=== PATIENT | female | born 1965 | race Caucasian/White ===

== ENCOUNTER → 2019-06-24 | Outpatient (CLI) | payer OTHER ==
[~2019-06-24] MED LIST: ALLEGRA PO; AMLO5 PO; AZEL137S; B12 SL; BISA5EC PO; CRUTCH3 USE; FERR325 PO; FLUT.05NI; Hard Nails2500 MCG PO; IBUP800 PO; LISI5 PO; MECL25 PO; MEDICAL MARIJUANA; OXYACE5T PO; OXYB5 PO; PROM25S PR; Sudogest60 MG PO; ZESTORETIC 20-251 EA PO
== END | disposition home or self-care (01) ==
LOC: LAB SHORT 18:52 → LAB 18:52
DX: N39.0 Urinary tract infection, site not specified (principal)
CPT/HCPCS: 87086

== ENCOUNTER → 2019-08-31 | Outpatient (CLI) | payer OTHER ==
[2019-09-01 12:21] LABS: Candida species (DNA Probe) Negative (NEGATIVE); G. vaginalis (DNA Probe) Positive (NEGATIVE); T. vaginalis (DNA Probe) Negative (NEGATIVE)
== END | disposition home or self-care (01) ==
LOC: LAB 19:26 → LAB SHORT 19:26
PROVIDERS: Obstetrics & Gynecology
DX: N89.8 Other specified noninflammatory disorders of vagina (principal)
CPT/HCPCS: 87480; 87510; 87660

== ENCOUNTER 2020-06-29 11:44 | Day surgery (SDC) | payer OTHER ==
[~2020-06-29] VITALS: Ht 167.6 cm; Wt 89.1 kg
[~2020-06-29 11:44] MED LIST changes: +ALLEGRA ALLERG180 MG PO; +CYAN500 PO
--- NOTE | 2020-06-29 15:12 | NUR ---
06/29/20 1512 Comfort Ochoa RECEIVED REPORT FROM LUCIO NUÑEZ. PATIENT IN RECLINER, DOES C/O PAIN IN LEFT LOWER ABDOMEN THAT SHE DESCRIBES BURNING SHE RATES THIS 2/10. SHE HAS BEEN MEDICATED PREVIOUSLY WITH ORAL PAIN MEDS PER MD ORDER WELL IV MEDICATION. SHE IS VERY EMOTIONAL AND KEEPS CRYING BUT SHE STATES THIS IS JUST DUE TO REMEMBER HER MOTHER WHO IN MARCH. WILL CONTINUE TO MONITOR PATIENT AND WORK TOWARDS DISCHARGE
== END 2020-06-29 15:46 | disposition home or self-care (01) ==
LOC: ORSCSDS 11:44
PROVIDERS: Obstetrics & Gynecology
PROC: 0UT24ZZ Resection of Bilateral Ovaries, Percutaneous Endoscopic Approach (ICD-10-PCS; principal; 2020-06-29 13:00)
PROC: 0UT64ZZ Resection of Left Fallopian Tube, Percutaneous Endoscopic Approach (ICD-10-PCS; principal; 2020-06-29 13:00)
DX: R10.2 Pelvic and perineal pain (principal); D27.1 Benign neoplasm of left ovary; N83.8 Other noninflammatory disorders of ovary, fallopian tube and broad ligament; Z90.710 Acquired absence of both cervix and uterus; K66.0 Peritoneal adhesions (postprocedural) (postinfection); I10 Essential (primary) hypertension; Z79.899 Other long term (current) drug therapy
CPT/HCPCS: 88305; A9270; J0171; J1100; J1885; J2001; J2250; J2405; J2704; J3010

== ENCOUNTER → 2022-10-16 | Outpatient (CLI) | payer OTHER | END | disposition home or self-care (01) | LOC: LAB SHORT 12:15 → LAB 12:15 | DX: E11.9 Type 2 diabetes mellitus without complications (principal) | CPT/HCPCS: 83036 ==

== ENCOUNTER → 2023-03-08 | Outpatient (CLI) | payer OTHER | END | disposition home or self-care (01) | LOC: LAB 10:03 → LAB SHORT 10:03 | DX: N39.0 Urinary tract infection, site not specified (principal) | CPT/HCPCS: 87077; 87086; 87186 ==

== ENCOUNTER → 2023-09-08 | Outpatient (CLI) | payer OTHER ==
[2023-09-09 11:34] LABS: Stool Occult Bld Immuno 1 Negative (NEGATIVE)
== END ==
LOC: LAB 05:40 → LAB SHORT 05:40
PROVIDERS: Family Medicine
DX: Z12.11 Encounter for screening for malignant neoplasm of colon (principal)
CPT/HCPCS: G0328

== ENCOUNTER → 2023-09-08 | Outpatient (CLI) | payer OTHER ==
[2023-09-08 17:09] LABS: Protein, Urine Random 21.8 mg/dL (0.0-11.9); Protein/Creat Ratio, Ur Random 0.1
== END | disposition home or self-care (01) ==
LOC: LAB SHORT 14:53 → LAB 14:53
PROVIDERS: Family Medicine
DX: E11.65 Type 2 diabetes mellitus with hyperglycemia (principal)
CPT/HCPCS: 82570; 84156